=== PATIENT | female | born 1960 | race Two or more races ===

== ENCOUNTER 2025-04-01 20:57 | Inpatient (IN) | payer BC ==
[~2025-04-01] VITALS: Ht 160 cm; Wt 74.8 kg
[2025-04-01 21:42] LABS: PLATELET COUNT (AUTO) 188 K/uL (179-408); RED BLOOD CELL COUNT(AUTO) 4.49 MIL/uL (3.63-4.92); RED CELL DISTRIBUTION WIDTH 13.6 % (12.3-17.7); WHITE BLOOD COUNT (AUTO) 8.4 K/uL (3.8-11.8)
[2025-04-01 21:50] LABS: CREATININE 1.0 mg/dL (0.6-1.3); SODIUM SERUM 141 mmol/L (136-145); UREA NITROGEN, BLOOD 20 mg/dL (7-18)
[2025-04-01 21:56] LABS: ASPARTATE AMINOTRANSFERASE 13.0 U/L (15-37); TOTAL PROTEIN, SERUM 7.1 g/dL (6.4-8.2)
[2025-04-01] MEDS: IV NORMAL SALINE 500 ML BAG IV ONE (22:27)
[2025-04-01 23:00] VITALS: BP 121/66
[2025-04-02] MEDS ORDERED: VALS160T2 PO (00:03)
[2025-04-02] MEDS ORDERED: ATEN50TA PO (00:03)
[2025-04-02] MEDS ORDERED: FURO20TA4 PO (00:03)
[2025-04-02] MEDS ORDERED: ESCI20TA44 PO (00:03)
[2025-04-02] MEDS ORDERED: MAGNESIUM HYDROXIDE 30 ML LIQUID UDC PO PRN (00:15)
[2025-04-02] MEDS ORDERED: ONDANSETRON 4 MG/2 ML VIAL IV PRN (00:15)
[2025-04-02] MEDS ORDERED: ACETAMINOPHEN 325 MG TABLET PO PRN (00:15)
[2025-04-02 01:10] VITALS: BP 126/60; TEMP 97.6; O2SAT 95
[2025-04-02] MEDS: IV NS 1000 ML 1,000 ML IV PRN (02:23)
[2025-04-02] MEDS: PANTOPRAZOLE SODIUM 40 MG TABLET.DR PO SCH (06:47)
[2025-04-02 07:01] LABS: PLATELET COUNT (AUTO) 164 K/uL (179-408); RED BLOOD CELL COUNT(AUTO) 4.14 MIL/uL (3.63-4.92); RED CELL DISTRIBUTION WIDTH 13.7 % (12.3-17.7); WHITE BLOOD COUNT (AUTO) 7.4 K/uL (3.8-11.8)
[2025-04-02 07:07] LABS: CREATININE 0.9 mg/dL (0.6-1.3); SODIUM SERUM 142.0 mmol/L (136-145); UREA NITROGEN, BLOOD 16.0 mg/dL (7-18)
[2025-04-02 07:12] VITALS: BP 103/48; TEMP 98.4; O2SAT 95
[2025-04-02 12:00] VITALS: BP 109/56; TEMP 98.6; O2SAT 96
[2025-04-02] MEDS ORDERED: AMLO-212 PO (12:16)
[2025-04-02] MEDS ORDERED: CLOB50SO2 TOP (13:09)
[2025-04-02] MEDS ORDERED: KETO120S5 TOP (13:09)
== END 2025-04-02 14:05 | disposition home or self-care (01) | DRG 310 ==
LOC: ER 20:59 → MEDSURG3 04-02 00:10 → TELE3 04-02 01:00
PROVIDERS: ADMIT Nurse Practitioner Family; ATTEND Student in an Organized Health Care Education/Training Program
DX: R00.1 Bradycardia, unspecified (principal); D69.6 Thrombocytopenia, unspecified; I10 Essential (primary) hypertension; T44.7X5A Adverse effect of beta-adrenoreceptor antagonists, initial encounter; Y92.9 Unspecified place or not applicable; Z79.899 Other long term (current) drug therapy; E86.0 Dehydration
CPT/HCPCS: 36415; 70450; 83735; 84100; 84443; 84484; 85025; 85730; G0378; J7040